=== PATIENT | male | born 1950 | race Caucasian/White ===

== ENCOUNTER → 2018-08-25 | Outpatient (CLI) | payer MEDICARE, OTHER ==
[~2018-08-25] MED LIST: ALPR0.25 PO; INSU100I28 SC; LEVO25TA4 PO; LOVA40TA2 PO; METF1000 PO; METO2.5T PO; METO25TA91 PO; SITA25TA PO
[2018-08-25 10:44] LABS: BASOPHILS # (AUTO) 0.03 x10^3/uL (0-0.1); BASOPHILS % (AUTO) 0 % (0-1); EOSINOPHILS # (AUTO) 0.23 x10^3/uL (0-0.4); EOSINOPHILS % (AUTO) 3 % (1-7); LYMPHOCYTES # (AUTO) 1.82 x10^3/uL (1-3.4); LYMPHOCYTES % (AUTO) 23 % (22-44); MD NO; MEAN CORPUSCULAR HEMOGLOBIN 29.2 pg (27.5-34.5); MEAN CORPUSCULAR HGB CONC 33.9 g/dL (33.2-36.2); MEAN CORPUSCULAR VOLUME 86.1 fL (81-97); MEAN PLATELET VOLUME 8.3 fL (7.4-10.4); MONOCYTES # (AUTO) 0.72 x10^3/uL (0.2-0.8); MONOCYTES % (AUTO) 9 % (2-9); NEUTROPHILS # (AUTO) 5.11 x10^3/uL (1.8-6.8); NEUTROPHILS % (AUTO) 65 % (42-75); PLATELET COUNT 175 x10^3/uL (130-400); RED BLOOD COUNT 4.97 x10^6/uL (4.38-5.82); RED CELL DISTRIBUTION WIDTH 14.3 % (9.4-14.8)
[2018-08-25 10:53] LABS: INTERNATIONAL NORMALIZED RATIO 1.01 (0.93-1.1); PROTHROMBIN TIME 10.7 Seconds (9.6-11.5)
[2018-08-25 10:55] LABS: ALANINE AMINOTRANSFERASE 15 U/L (12-78); ALBUMIN 3.7 g/dL (3.4-5.0); ANION GAP 8 mmol/L (5-15); CALCIUM 9.2 mg/dL (8.5-10.1); CHLORIDE 105 mmol/L (98-107); CREATININE 2.91 mg/dL (0.7-1.3)
[2018-08-25 10:56] LABS: ALKALINE PHOSPHATASE 80 U/L (45-117); BILIRUBIN,TOTAL 0.7 mg/dL (0.2-1.0); TOTAL PROTEIN 8.1 g/dL (6.4-8.2)
== END | disposition home or self-care (01) ==
LOC: STAR 09:14
PROVIDERS: ATTEND Neurological Surgery
DX: Z01.818 Encounter for other preprocedural examination (principal); M48.062 Spinal stenosis, lumbar region with neurogenic claudication
CPT/HCPCS: 36415; 80053; 85025; 85610; 85730; 93005

== ENCOUNTER 2018-09-07 05:45 | Inpatient (IN) | payer MEDICARE, OTHER ==
[~2018-09-07] VITALS: Ht 182.9 cm; Wt 131.6 kg
[2018-09-07] MEDS ORDERED: LACTATED RINGERS 1,000 ML IV SCH (06:10)
[2018-09-07] MEDS ORDERED: THROMBIN 5,000 UNIT VIAL TP ONE (06:48)
[2018-09-07] MEDS ORDERED: BACITRACIN OINT 500U/GM, 15 GM ONE (06:48)
[2018-09-07] MEDS ORDERED: BUPIVACAINE/PF-EPI 0.5% 1:200K ONE (06:48)
[2018-09-07] MEDS ORDERED: methylPREDNISolone *ACETATE* 40 MG/ML ONE (06:48)
[2018-09-07] MEDS ORDERED: VANCOMYCIN 1,000 MG ONE (06:49)
[2018-09-07] MEDS ORDERED: BACITRACIN 50,000 UNIT ONE (06:49)
[2018-09-07] MEDS ORDERED: FENTANYL PF 250 MCG/5ML ONE ×2 (08:06→10:45)
[2018-09-07] MEDS ORDERED: EPHEDRINE 50 MG/ML, 1ML ONE (08:19)
[2018-09-07] MEDS ORDERED: CEFAZOLIN 1,000 MG ONE ×2 (08:19→10:21)
[2018-09-07] MEDS ORDERED: LIDOCAINE-MPF 2% ,5ML ONE (08:19)
[2018-09-07] MEDS ORDERED: PHENYLEPHRINE 10 MG/ML ONE (08:19)
[2018-09-07] MEDS ORDERED: PHARMACY MAY ADJ FOR RENAL FX MC PRN (08:30)
[2018-09-07] MEDS ORDERED: SENNA/DOCUSATE TABLET PO PRN (08:30)
[2018-09-07] MEDS ORDERED: KETOROLAC 30 MG/1 ML IVPush SCH (08:30)
[2018-09-07] MEDS ORDERED: DIAZEPAM 5 MG TABLET PO PRN (08:30)
[2018-09-07] MEDS ORDERED: BISACODYL 10 MG SUPP PR PRN ×2 (08:30→13:00)
[2018-09-07] MEDS ORDERED: LABETALOL 5MG/ML, 20ML IVPush PRN (08:30)
[2018-09-07] MEDS ORDERED: MAGNESIUM HYDROXIDE 8%, 30ML UDC PO PRN (08:30)
[2018-09-07] MEDS: CEFAZOLIN PMX 1GM/50ML 50 ML IVPB SCH ×2 (08:30→18:05)
[2018-09-07] MEDS ORDERED: ONDANSETRON 2MG/ML, 2ML ONE (10:21)
[2018-09-07] MEDS ORDERED: DEXAMETHASONE 4 MG/ML, 1ML ONE (10:21)
[2018-09-07] MEDS ORDERED: PROPOFOL 10 MG/ML, 20ML ONE (10:21)
[2018-09-07] MEDS ORDERED: GLYCOPYRROLATE 0.2MG/1ML, 5ML ONE (10:21)
[2018-09-07] MEDS ORDERED: ROCURONIUM 10MG/ML,5ML ONE (10:21)
[2018-09-07] MEDS ORDERED: NEOSTIGMINE 1 MG/ML, 10ML ONE (10:21)
[2018-09-07] MEDS ORDERED: SUCCINYLCHOLINE 20 MG/ML, 10ML ONE (10:21)
[2018-09-07] MEDS ORDERED: ACETAMINOPHEN 325 MG TABLET PO PRN (12:30)
[2018-09-07] MEDS ORDERED: ONDANSETRON 2MG/ML, 2ML IV PRN (12:30)
[2018-09-07] MEDS ORDERED: PROMETHAZINE 25 MG/ML, 1ML IV PRN (12:30)
[2018-09-07] MEDS ORDERED: DIAZEPAM 5 MG/ML, 2ML IVPush PRN (12:30)
[2018-09-07] MEDS ORDERED: ONDANSETRON ODT 8 MG PO PRN (12:30)
[2018-09-07] MEDS ORDERED: HYDROmorphone 2 MG/ML, 1ML IVPush PRN (12:30)
[2018-09-07] MEDS ORDERED: HYDROcodone/APAP 7.5-325MG/15ML UDC PO PRN (12:30)
[2018-09-07] MEDS ORDERED: HYDROcodone/APAP 7.5-325MG/15ML UDC ONE (12:49)
[2018-09-07] MEDS ORDERED: morphine SULFATE 10 MG/ML, 1ML IVPush PRN (13:00)
[2018-09-07] MEDS ORDERED: DOCUSATE 100 MG CAPSULE PO PRN (13:00)
[2018-09-07] MEDS ORDERED: METHOCARBAMOL 500 MG TABLET PO PRN (13:00)
[2018-09-07] MEDS ORDERED: LIDODERM 5% PATCH TD PRN (13:00)
[2018-09-07] MEDS ORDERED: ONDANSETRON 2MG/ML, 2ML IVPush PRN (13:00)
[2018-09-07] MEDS ORDERED: hydrALAzine 20 MG/ML, 1ML IVPush PRN (13:00)
[2018-09-07] MEDS ORDERED: ONDANSETRON ODT 4 MG PO PRN (13:00)
[2018-09-07] MEDS ORDERED: FENTANYL PF 100 MCG/2ML ONE (13:07)
[2018-09-07] MEDS: FENTANYL PF 100 MCG/2ML IV PRN ×2 (13:14→13:26)
[2018-09-07] MEDS: INSULIN DETEMIR 100 UNITS/ML, PEN SQ-INSULIN SCH (16:40)
[2018-09-07] MEDS: LEVOTHYROXINE 25 MCG TABLET PO SCH (16:43)
[2018-09-07] MEDS: D5%-0.9% NACL+KCL 20MEQ 1,000 ML IV SCH ×2 (16:43→18:30)
[2018-09-07] MEDS: HEPARIN 5,000 UNITS/ML, 1ML SQ SCH ×2 (16:44→20:30)
[2018-09-07] MEDS: HYDROcodone/APAP 5/325 TABLET PO PRN ×2 (16:53→21:48)
[2018-09-07] MEDS: METOPROLOL SUCCINATE 25 MG TAB.ER.24H PO SCH ×2 (16:54→20:29)
[2018-09-07] MEDS: metFORMIN 500 MG TABLET PO SCH ×2 (16:54→20:28)
[2018-09-07] MEDS: METOLAZONE 2.5 MG TABLET PO SCH (16:54)
[2018-09-07] MEDS: SODIUM CHLORIDE 0.9% 1,000 ML IV SCH (18:06)
[2018-09-07 18:34] VITALS: BP 128/75
[2018-09-07] MEDS: LOVASTATIN 40 MG TABLET PO SCH (20:28)
[2018-09-08 00:13] VITALS: BP 118/72
[2018-09-08 03:45] VITALS: BP 135/76
[2018-09-08] MEDS: HEPARIN 5,000 UNITS/ML, 1ML SQ SCH (04:23)
[2018-09-08] MEDS: SODIUM CHLORIDE 0.9% 1,000 ML IV SCH (04:23)
[2018-09-08] MEDS: DIPHENHYDRAMINE 50 MG CAPSULE PO PRN ×2 (04:25→21:23)
[2018-09-08] MEDS ORDERED: DIPHENHYDRAMINE 25 MG CAPSULE ONE ×2 (04:25→21:16)
[2018-09-08] MEDS: D5%-0.9% NACL+KCL 20MEQ 1,000 ML IV SCH (04:30)
[2018-09-08] MEDS: HYDROcodone/APAP 5/325 TABLET PO PRN ×2 (04:35→21:22)
[2018-09-08 05:17] LABS: BASOPHILS # (AUTO) 0.02 x10^3/uL (0-0.1); BASOPHILS % (AUTO) 0 % (0-1); EOSINOPHILS # (AUTO) 0.08 x10^3/uL (0-0.4); EOSINOPHILS % (AUTO) 1 % (1-7); LYMPHOCYTES # (AUTO) 2.03 x10^3/uL (1-3.4); LYMPHOCYTES % (AUTO) 21 % (22-44); MD NO; MEAN CORPUSCULAR HEMOGLOBIN 29.7 pg (27.5-34.5); MEAN CORPUSCULAR HGB CONC 34.1 g/dL (33.2-36.2); MEAN CORPUSCULAR VOLUME 86.9 fL (81-97); MEAN PLATELET VOLUME 8.1 fL (7.4-10.4); MONOCYTES # (AUTO) 0.88 x10^3/uL (0.2-0.8); MONOCYTES % (AUTO) 9 % (2-9); NEUTROPHILS # (AUTO) 6.87 x10^3/uL (1.8-6.8); NEUTROPHILS % (AUTO) 70 % (42-75); PLATELET COUNT 159 x10^3/uL (130-400); RED BLOOD COUNT 3.91 x10^6/uL (4.38-5.82); RED CELL DISTRIBUTION WIDTH 14.8 % (9.4-14.8)
[2018-09-08 05:25] LABS: ANION GAP 7 mmol/L (5-15); CALCIUM 8.4 mg/dL (8.5-10.1); CHLORIDE 106 mmol/L (98-107)
[2018-09-08 07:40] VITALS: BP 122/74
[2018-09-08] MEDS: LEVOTHYROXINE 25 MCG TABLET PO SCH (09:24)
[2018-09-08] MEDS: metFORMIN 500 MG TABLET PO SCH (09:25)
[2018-09-08] MEDS: METOPROLOL SUCCINATE 25 MG TAB.ER.24H PO SCH ×2 (09:25→21:24)
[2018-09-08] MEDS: SENNA/DOCUSATE TABLET PO SCH (09:25)
[2018-09-08] MEDS: INSULIN DETEMIR 100 UNITS/ML, PEN SQ-INSULIN SCH (09:30)
[2018-09-08 09:48] LABS: CREATININE,URINE RANDOM 83.3 mg/dL
[2018-09-08] MEDS: METOLAZONE 2.5 MG TABLET PO SCH (10:16)
[2018-09-08 15:46] VITALS: BP 131/83
[2018-09-08] MEDS ORDERED: ACETAMINOPHEN 325 MG TABLET PO PRN (19:00)
[2018-09-08 19:11] VITALS: BP 156/86
[2018-09-08] MEDS: LOVASTATIN 40 MG TABLET PO SCH (21:22)
[2018-09-09 00:34] VITALS: BP 164/98
[2018-09-09 07:32] VITALS: BP 155/95
[2018-09-09 07:34] LABS: ANION GAP 7 mmol/L (5-15); CALCIUM 8.4 mg/dL (8.5-10.1); CHLORIDE 109 mmol/L (98-107); CREATININE 3.42 mg/dL (0.7-1.3)
[2018-09-09] MEDS: METOPROLOL SUCCINATE 25 MG TAB.ER.24H PO SCH ×2 (08:08→21:38)
[2018-09-09] MEDS: SENNA/DOCUSATE TABLET PO SCH (08:09)
[2018-09-09] MEDS: LEVOTHYROXINE 25 MCG TABLET PO SCH (08:10)
[2018-09-09] MEDS: HYDROcodone/APAP 5/325 TABLET PO PRN ×2 (13:13→21:38)
[2018-09-09 13:18] VITALS: BP 153/83
[2018-09-09] MEDS: INSULIN GLARGINE 100 UNITS/ML, PEN SQ-INSULIN SCH (16:33)
[2018-09-09] MEDS ORDERED: VALS1TAB24 PO (16:49)
[2018-09-09] MEDS ORDERED: CHOL2000 PO (16:57)
[2018-09-09] MEDS ORDERED: OXYC-307 PO (16:57)
[2018-09-09] MEDS ORDERED: CALC-557 PO (16:57)
[2018-09-09] MEDS ORDERED: GABA300C10 PO (16:57)
[2018-09-09] MEDS ORDERED: FUROSEMIDE 20 MG/2 ML IV ONE (17:00)
[2018-09-09 19:25] VITALS: BP 167/83
[2018-09-09] MEDS: LOVASTATIN 40 MG TABLET PO SCH (21:38)
[2018-09-10 00:30] VITALS: BP 155/90
[2018-09-10 06:50] VITALS: BP 153/95
[2018-09-10] MEDS ORDERED: metFORMIN 500 MG TABLET PO SCH (08:00)
[2018-09-10] MEDS: SENNA/DOCUSATE TABLET PO SCH (08:54)
[2018-09-10] MEDS: LEVOTHYROXINE 25 MCG TABLET PO SCH (08:54)
[2018-09-10] MEDS: INSULIN GLARGINE 100 UNITS/ML, PEN SQ-INSULIN SCH (08:55)
[2018-09-10] MEDS: METOPROLOL SUCCINATE 25 MG TAB.ER.24H PO SCH (08:55)
== END 2018-09-10 11:50 | disposition home or self-care (01) | DRG 516 ==
LOC: OUT 05:45 → INTOOBSV 08:23 → ORIP 08:23 → 4NOR 14:29 → OBSVTOIN 09-08 07:04
PROVIDERS: ADMIT Neurological Surgery; ATTEND Neurological Surgery
PROC: 01NB0ZZ Release Lumbar Nerve, Open Approach (ICD-10-PCS; principal; 2018-09-07 08:00)
DX: M48.062 Spinal stenosis, lumbar region with neurogenic claudication (principal); N18.4 Chronic kidney disease, stage 4 (severe); N17.9 Acute kidney failure, unspecified; I12.9 Hypertensive chronic kidney disease with stage 1 through stage 4 chronic kidney disease, or unspecified chronic kidney disease; E11.22 Type 2 diabetes mellitus with diabetic chronic kidney disease; E78.5 Hyperlipidemia, unspecified; E78.00 Pure hypercholesterolemia, unspecified; E03.9 Hypothyroidism, unspecified; N40.1 Benign prostatic hyperplasia with lower urinary tract symptoms; R33.8 Other retention of urine; Z88.6 Allergy status to analgesic agent; Z88.8 Allergy status to other drugs, medicaments and biological substances; Z80.41 Family history of malignant neoplasm of ovary; Z82.49 Family history of ischemic heart disease and other diseases of the circulatory system; Z87.891 Personal history of nicotine dependence; Z79.899 Other long term (current) drug therapy
CPT/HCPCS: 36415; 72100; 76770; 80048; 82570; 82962; 83036; 83880; 84300; 85025; 86850; 86900; G0378; J0690; J1100; J1644; J2270; J2405; J2704; J2710; J3010; J3370; J3490; J0330; J1030; J1815; J2370; J7030; J7120

== ENCOUNTER 2020-05-10 09:30 | Emergency (ER) | payer MEDICARE, OTHER ==
[~2020-05-10] VITALS: Ht 180.3 cm; Wt 115.0 kg
[~2020-05-10 09:30] MED LIST changes: +CALC-557 PO; +CHOL2000 PO; +GABA300C10 PO; +INSU100V35 SQ-INSULIN; +METO25TA2 PO; +METO5TAB5 PO; +OXYC-307 PO; +SEMA0.25 SQ-INSULIN; +VALS1TAB25 PO
[2020-05-10] MEDS ORDERED: ALPR0.5T5 PO (09:50)
[2020-05-10] MEDS ORDERED: SERT25TA3 PO (09:50)
[2020-05-10] MEDS ORDERED: METO50TA82 PO (09:50)
[2020-05-10] MEDS ORDERED: SODIUM CHLORIDE FLUSH 10ML SYR IVF ONE (10:00)
--- NOTE | 2020-05-10 10:16 | NUR ---
LATE ENTRY: PATIENT BIB BY [facility] WITH CHIEF C/O HEART "SKIPPING BEATS." PATIENT STATES IT STARTED LAST NIGHT AND CONTINUED TO THIS MORNING. BP EN ROUTE TO HOS[facility] 154/72, HR 100, 12 LEAD NEGATIVE PER EMS, BLOOD SUGAR 104, 20 GAUGE IV STARTED VIA EMS. PATIENT CONNECTED TO DIAGNOSTIC ASSISTANT, NO SIGNS OF ACUTE DISTRESS, CALL LIGHT WITHIN REACH.
[2020-05-10 10:30] LABS: BASOPHILS # (AUTO) 0.02 x10^3/uL (0-0.1); BASOPHILS % (AUTO) 0 % (0-1); EOSINOPHILS # (AUTO) 0.22 x10^3/uL (0-0.4); EOSINOPHILS % (AUTO) 3 % (1-7); LYMPHOCYTES # (AUTO) 1.98 x10^3/uL (1-3.4); LYMPHOCYTES % (AUTO) 27 % (22-44); MD NO; MEAN CORPUSCULAR HEMOGLOBIN 29.5 pg (27.5-34.5); MEAN CORPUSCULAR HGB CONC 33.3 g/dL (33.2-36.2); MONOCYTES # (AUTO) 0.77 x10^3/uL (0.2-0.8); MONOCYTES % (AUTO) 10 % (2-9); NEUTROPHILS # (AUTO) 4.37 x10^3/uL (1.8-6.8); NEUTROPHILS % (AUTO) 59 % (42-75); PLATELET COUNT 169 x10^3/uL (130-400); RED BLOOD COUNT 4.76 x10^6/uL (4.38-5.82); RED CELL DISTRIBUTION WIDTH 14.5 % (9.4-14.8)
[2020-05-10 10:40] LABS: ALBUMIN 3.5 g/dL (3.4-5.0); ANION GAP 8 mmol/L (5-15); CALCIUM 9.1 mg/dL (8.5-10.1); CHLORIDE 106 mmol/L (98-107)
[2020-05-10 10:44] LABS: TROPONIN I < 0.015 ng/mL (0.000-0.045)
--- NOTE | 2020-05-10 10:54 | NUR ---
SPOKE WITH PATIENT'S SPOUSE ON TELEPHONE, UPDATED ON STATUS OF PATIENT.
[2020-05-10 11:11] VITALS: BP 153/81
--- NOTE | 2020-05-10 11:12 | NUR ---
ERMD AT BEDSIDE TO DISCUSS POC
--- NOTE | 2020-05-10 11:23 | NUR ---
DISCHARGE INSTRUCTIONS REVIEWED
== END 2020-05-10 11:26 | disposition home or self-care (01) ==
LOC: ED 09:45
DX: R00.2 Palpitations (principal); R07.9 Chest pain, unspecified; E11.22 Type 2 diabetes mellitus with diabetic chronic kidney disease; I12.9 Hypertensive chronic kidney disease with stage 1 through stage 4 chronic kidney disease, or unspecified chronic kidney disease; N18.3 Chronic kidney disease, stage 3 (moderate)
CPT/HCPCS: 36415; 71045; 80048; 82040; 83735; 83880; 84484; 85025; 93005; 99285